=== PATIENT | male | born 1985 | race Hispanic/Latino ===

== ENCOUNTER 2017-01-08 23:29 | Emergency (ER) | payer OTHER ==
[2017-01-08 23:33] VITALS: BP 124/73; PULSE 93; RESP 16; TEMP 98.1; O2SAT 100
--- NOTE | 2017-01-08 23:46 | ED PDOC ---
Lower Extremity Pain/Injury Time Seen by Provider: 01/08/17 23:36 Chief Complaint (Nursing): Lower Extremity Problem/Injury Chief Complaint (Provider): right ankle pain History Per: Patient History/Exam Limitations: no limitations Onset/Duration Of Symptoms: Hrs Current Symptoms Are (Timing): Still Present Additional History Per: Patient Additional Complaint(s): 31 y/o male brought in by EMS for eval of right ankle pain x 1 hour. Patient states he was dancing at a wedding and slipped on money on the floor and rolled right ankle. Patient states he felt a "pop", and felt to the floor and was unable to bear weight since then. Patient took two advils with little improvement of pain. Denies numbness/weakness right lower extremity. Past Medical History Reviewed: Historical Data, Nursing Documentation, Vital Signs Vital Signs: Last Vital Signs Temp 98.1 F 01/08/17 23:31 Pulse 93 H 01/08/17 23:31 Resp 16 01/08/17 23:31 BP 124/73 01/08/17 23:31 Pulse Ox 100 01/08/17 23:31 - Medical History PMH: No Chronic Diseases - Surgical History Surgical History: No Surg Hx - Family History Family History: States: Unknown Family Hx - Living Arrangements Living Arrangements: With Family - Home Medications Home Medications: Ambulatory Orders Medication Instructions Recorded Ibuprofen [Motrin Tab] 1 tab PO Q6 PRN #20 tab 01/09/17 traMADol [Ultram] 50 mg PO Q8 PRN #10 tab 01/09/17 - Allergies Allergies/Adverse Reactions: Allergies Allergy/AdvReac Type Severity Reaction Status Date / Time No Known Allergies Allergy Verified 01/08/17 23:31 Review of Systems ROS Statement: Except As Marked, All Systems Reviewed And Found Negative Musculoskeletal: Positive for: Foot Pain (right ankle) Physical Exam - Reviewed Nursing Documentation Reviewed: Yes Vital Signs Reviewed: Yes - Physical Exam Appears: Positive for: Well, Non-toxic, No Acute Distress Head Exam: Positive for: ATRAUMATIC, NORMAL INSPECTION, NORMOCEPHALIC Pulses-Dorsalis Pedis (L): 2+ Pulses-Dorsalis Pedis (R): 2+ Pulses-Post. Tibialis (L): 2+ Pulses-Post. Tibialis (R): 2+ Extremity: Positive for: Normal ROM, Tenderness (right lateral malleolus, superior aspect right ankle (mild), right medial malleolus (mild)), Capillary Refill, Swelling (right lateral malleolus). Negative for: Deformity Neurologic/Psych: Positive for: Alert, Oriented. Negative for: Motor/Sensory Deficits - ECG O2 Sat by Pulse Oximetry: 100 - Other Rad xray right ankle X-Ray: Viewed By Tn X-Ray Interpretation: no acute findings - Progress ED Course And Treament: xray, tramadol EXAM: XR Right Ankle Complete, 3 or More Views CLINICAL HISTORY: 31 years old, male; Injury or trauma; Fall; Initial encounter; Sprain or strain ; Ankle; Right; Injury date: 01/08/2017; Injury details: Pt states he was dancing injured rt ankle; Additional info: Fall, lateral pain TECHNIQUE: Frontal, lateral and oblique views of the right ankle. EXAM DATE/TIME: Exam ordered 01/08/2017 11:42 PM COMPARISON: No relevant prior studies available. FINDINGS: Bones/joints: Essentially nondisplaced fracture of the posterior distal tibia. Although there is 1 mm distraction, there is no offset of the articular surface. Mild joint effusion. No dislocation. Soft tissues: Unremarkable. IMPRESSION: 1. Essentially nondisplaced intra-articular fracture of the posterior distal tibia. There is 1 mm distraction along the articular surface with no offset or depression of the articular surface. 2. Mild joint effusion. Thank you for allowing us to participate in the care of your patient. Patient evaluated by podiatry resident on-call; posterior splint/murphy dressing applied, crutches given. Advised NSAIDs, nonweight bearing, follow up podiatry. Patient educated on findings, discharged with rx ibuprofen, tramadol. Patient educated on narcotics and potential risk of abuse/dependence/overdose; advised to take as needed for severe pain only. PAtient demonstrates full understanding. Follow up podiatry. RICE. Return to ED for worsening/concerning symptoms. Disposition - Clinical Impression Clinical Impression: Ankle fracture - Patient ED Disposition Is Patient to be Admitted: No Counseled Patient/Family Regarding: Studies Performed, Diagnosis, Need For Followup, Rx Given - Disposition Referrals: Rosa Elena Vann DPM [Staff Provider] - Disposition: Routine/Home Disposition Time: 04:00 Condition: STABLE Prescriptions: Ibuprofen [Motrin Tab] 1 tab PO Q6 PRN #20 tab PRN Reason: Pain, Moderate (4-7) traMADol [Ultram] 50 mg PO Q8 PRN #10 tab PRN Reason: Pain, Severe (8-10) Instructions: Ankle Fracture (ED)
[2017-01-09] MEDS ORDERED: Oxycodone/Acetaminophen 5/325 mg Tab PO ONE (01:28)
--- NOTE | 2017-01-09 02:59 | CP.PCM.CON ---
History of Present Illness - History of Present Illness History of Present Illness: PODIATRY CONSULT NOTE 31 year old male presents to the ED with a chief complaint of right ankle pain and swelling that is a direct result of an injury that occurred while he was at a wedding earlier this evening. Pt reports while dancing he landed improperly on right ankle and heard a palpable "popping sound". Pt reports he could not bear weight immediately to the right foot. He denies any knee pain, and denies hitting his back or head. Pt was brought promptly to [facility] by EMS. Pain, which is localized to level of right ankle, is under control with analgesics given prior to the interview and examination, pain graded a 5/10 at this time. Pt denies recent f/c/cp/sob/n/v. Pt accompanied by and several immediate family members. Pt is not local to this area and resides in [facility]. Past Patient History - Past Social History Smoking Status: Never Smoked - PSYCHIATRIC Hx Psychophysiologic Disorder: No Hx Substance Use: No Meds Home Medications: Home Medication List Medication Instructions Recorded Confirmed Type Ibuprofen [Motrin Tab] 1 tab PO Q6 PRN #20 tab 01/09/17 Rx traMADol [Ultram] 50 mg PO Q8 PRN #10 tab 01/09/17 Rx Allergies/Adverse Reactions: Allergies Allergy/AdvReac Type Severity Reaction Status Date / Time No Known Allergies Allergy Verified 01/08/17 23:31 Physical Exam - Constitutional Appears: Well, Non-toxic, No Acute Distress - Extremities Exam Additional comments: Right leg focused. VASC: DP and PT pulses are fully palpable, graded +3/4. Negative calf tenderness on compression. Moderate non-pitting edema noted at level of ankle joint. Temperature runs warm to cool proximal to distal. Capillary refill time to all 10 digits <3 seconds. DERM: No noted ecchymosis at this time. No open wounds, lesions, vesicles, or macerations noted. No hyper-keratotic lesion. NEURO: Protective sensation and epicritic sensation grossly intact. Absent paresthesias at this time. MUSK: No gross defromities noted. Tender limited ankle ROM of ankle joint in saggital plane, limitation moderate secondary to guarding and swelling. Tenderness on palpation along medial malleoli, posteriro ankle capsule, and lateral fibular ar mid-calf level. Pain illicited on Hopkin's test- positive for induced pain on ankle joint diastasis stress. Pedal muscle strength is graded 5/5 in all 4 major pedal muscle groups. - Neurological Exam Neurological exam: Alert, Oriented x3 - Psychiatric Exam Psychiatric exam: Normal Affect, Normal Mood Results - Vital Signs Recent Vital Signs: Last Vital Signs Temp 98.1 F 01/08/17 23:31 Pulse 93 H 01/08/17 23:31 Resp 16 01/08/17 23:31 BP 124/73 01/08/17 23:31 Pulse Ox 100 01/09/17 02:11 Assessment & Plan - Assessment and Plan (Free Text) Assessment: 31 year old male with closed right ankle fracture w/ syndesmotic rupture. Plan: Pt evaluated and treated. Chart, labs, and vitals reviewed. Discussed with attending Dr. Vann, who endorsed the following plan. All patients questions and concerns were addressed at this time to his satisfaction. -X-rays reviewed, results show: non displaced posterior malleolar fracture, absent talar displacement, and notable distal tibio-fibular diastasis. -Garcia Compression applied. Placed pt in posterior splint. To be non- weightbearing to right leg with use of axillary crutches. -Pain control via Ibuprofen 600mg prn pain. -RICE therapy. Pt to followup with Dr. Vann as needed or for recommendations for potential referral to a foot and ankle specialist in pt's local area. Will need to follow- up within 10 days time with a foot and ankle specialist. - Date & Time Date: 01/09/17 Time: 02:59
--- NOTE | 2017-01-09 10:18 | RAD ---
Right tibia fibula History: Evaluate for fracture. Findings: Three views of the right tibia and fibula demonstrates nondisplaced fracture of the posterior distal tibial. Mild soft tissue swelling. Impression: Nondisplaced fracture of the posterior distal tibia with associated soft tissue swelling. Please note that this report is in general agreement with the preliminary report provided by [facility].
--- NOTE | 2017-01-09 10:28 | RAD ---
PROCEDURE: Right Wrist Radiographs. HISTORY: fall, lateral pain COMPARISON: None. FINDINGS: BONES: Essentially nondisplaced fracture of the posterior distal tibia. JOINTS: Mild joint effusion. SOFT TISSUES: Soft tissue swelling. OTHER FINDINGS: None. IMPRESSION: Essentially nondisplaced fracture of the posterior distal tibia. Please note that this report is in general agreement with the preliminary report provided by [facility].
== END 2017-01-09 05:31 | disposition home or self-care (01) ==
LOC: H.ER 23:29
DX: M25.571 Pain in right ankle and joints of right foot (principal); S82.301A Unspecified fracture of lower end of right tibia, initial encounter for closed fracture; S82.891A Other fracture of right lower leg, initial encounter for closed fracture; W01.0XXA Fall on same level from slipping, tripping and stumbling without subsequent striking against object, initial encounter; Y93.41 Activity, dancing; Y92.9 Unspecified place or not applicable